=== PATIENT | female | born 1990 | race African-American/Black ===

== ENCOUNTER 2021-08-26 16:08 | Emergency (ER) | payer SELFPAY ==
[~2021-08-26] VITALS: Ht 160 cm; Wt 61.8 kg
[2021-08-26] MEDS ORDERED: ACETAMINOPHEN/CODEINE 300-30 MG TABLET PO ONE (17:30)
[2021-08-26 19:01] VITALS: BP 155/73
[2021-08-26] MEDS ORDERED: KETOROLAC TROMETHAMINE 10 MG TABLET PO ONE (19:30)
== END 2021-08-26 20:52 | disposition home or self-care (01) ==
LOC: EMS 16:12
DX: S20.213A Contusion of bilateral front wall of thorax, initial encounter (principal); W18.39XA Other fall on same level, initial encounter; Y93.89 Activity, other specified; Y92.89 Other specified places as the place of occurrence of the external cause; Y99.8 Other external cause status
CPT/HCPCS: 71111; 99283